=== PATIENT | female | born 1995 | race Caucasian/White ===

== ENCOUNTER → 2019-05-29 13:46 | Outpatient (BNVA) | payer SELFPAY | PROVIDERS: Family Provider Family Medicine; PCP Family Medicine; Visit Provider Registered Nurse | DX: N92.6 Irregular menstruation, unspecified (principal); N76.0 Acute vaginitis; B96.89 Other specified bacterial agents as the cause of diseases classified elsewhere; Z97.5 Presence of (intrauterine) contraceptive device | CPT/HCPCS: 81000; 87491; 87591; 87661 ==

== ENCOUNTER → 2021-03-17 15:09 | Outpatient (BNVA) | payer MEDICAID, SELFPAY | PROVIDERS: Family Provider Family Medicine; PCP Family Medicine; Visit Provider Registered Nurse | DX: N92.6 Irregular menstruation, unspecified (principal); Z32.01 Encounter for pregnancy test, result positive; H92.03 Otalgia, bilateral | CPT/HCPCS: 81025 ==

== ENCOUNTER 2021-10-30 17:35 | Inpatient (IN) | payer MEDICAID, SELFPAY ==
[2021-10-30] VITALS (106 sets, daily range): BP systolic 105–184; BP diastolic 55–115; PULSE 93–150; RESP 18; TEMP 36.1–37.2; O2SAT 93–99; BMI 29.0
[2021-10-30 08:55] LABS: Nitrazine Paper, PH Negative
[2021-10-30 09:01] LABS: Actim Prom Negative
[2021-10-30 11:12] LABS: Bilirubin Urine Neg (Negative); Blood Urine 3+ (Negative); Glucose Urine UA Norm (Normal); Ketones Urine 1+ (Negative); Nitrate Urine Negative (Negative); Protein Urine 3+ (Negative); Specific Gravity, Urine 1.005 (1.005-1.030); Urine Appearance Cloudy (CLEAR); Urine Color Red (Yellow); Urobilinogen Urine Norm (Negative); pH Urine 6.5 (5-7)
[2021-10-30 11:13] LABS: Add Urine Microscopic? YES; Leukocyte Esterase Urine 2+ (Negative); RBC Urine TOO NUMEROUS TO CNT /hpf (0-2)
[2021-10-30 11:16] LABS: Add Urine Culture? Yes; Squamous Epithelial Cell Urine 0-4 /hpf (0-5)
[2021-10-30] MEDS: ondansetron 2 mg/ML SDV 2 mL 4 MG IVP ×2 (11:24→18:50)
[2021-10-30 12:33] LABS: Charge for UA Resulting for Rev
[2021-10-30 12:37] LABS: Glucose Urine UA Norm (Normal); Ketones Urine 2+ (Negative); Protein Urine 1+ (Negative); Specific Gravity, Urine 1.005 (1.005-1.030); Urine Appearance Hazy (CLEAR); Urine Color Other (Yellow); pH Urine 7 (5-7)
[2021-10-30 12:38] LABS: Add Urine Microscopic? YES; Bilirubin Urine Neg (Negative); Blood Urine 3+ (Negative); Leukocyte Esterase Urine 1+ (Negative); Nitrate Urine Negative (Negative); Urobilinogen Urine Norm (Negative)
[2021-10-30 13:11] LABS: UPRO/UCREAT Ratio 0.34 mg/mg CR; Urine Creatinine 59 mg/dL (28-217); Urine Protein Random 20 mg/dL
[2021-10-30] MEDS: lactated ringers 1,000 ML 999 ML IV ×2 (14:21→15:22)
[2021-10-30 14:25] LABS: Basophils % 0.1 %; Eosinophils % 0.2 %; Hematocrit 41.4 % (37.0-47.0); Hemoglobin 13.4 g/dL (11.5-15.3); Lymphocytes # 2.9 10^3/uL (0.8-4.8); Lymphocytes % 17.6 %; Mean Corpuscular HGB Conc 32.4 g/dL (30.0-36.0); Mean Corpuscular Hemoglobin 30.3 pg (28.0-34.0); Mean Corpuscular Volume 93.7 fl (81-99); Mean Platelet Volume 10.2 fL (7.4-10.4); Monocytes # 0.8 10^3/uL (0.2-0.9); Monocytes % 4.6 %; Neutrophils # 12.58 10^3/uL (1.8-7.7); Nucleated Red Blood Cells % 0 %; Platelet Count 401 10^3/cmm (130-400); Red Blood Count 4.42 10^6/uL (4.1-5.3); Red Cell Distribution Width 14.3 % (12.1-15.1); White Blood Count 16.3 10^3/uL (4.0-10.0)
[2021-10-30] MEDS: oxytocin 30 UNIT/500 ML BAG IV (14:26)
--- NOTE | 2021-10-30 15:46 | P.ANESASSM_ITS ---
Pre-Anesthetic Assessment Height/Weight: Height 1.52 m Weight 67.585 kg Temp Pulse Resp BP Pulse Ox 97.0 F L 146 H 18 123/69 99 10/30/21 08:41 10/30/21 15:42 10/30/21 08:51 10/30/21 15:42 10/30/21 15:24 Familial anesthetic complications: none Was Beta Glenn taken within 24 hours: Yes Was Clonidine taken within 24 hours: N/A Social No alcohol and No tobacco Exam alert, oriented x 3, clear to auscultation bilaterally and regular rate & rhythm Airway Submandibular: within normal limits Cervical ROM: within normal limits Mallampati: Class II Dentition: chipped CV/HEM Hypertension GI Gastroesophageal Reflux Disease Anesthetic Plan ASA status: 2 Anesthesia: Regional (specify below) (Labor epidural) Medications/Allergies Home Medications Medication Instructions Recorded Confirmed Last Taken Type omeprazole 10 mg capsule,delayed 10 mg PO DAILY 10/31/20 03/17/21 Unknown History release propranolol 10 mg tablet 20 mg PO BID 01/26/21 03/17/21 Unknown History Allergies Allergy/AdvReac Type Severity Reaction Status Date / Time No Known Allergies Allergy Verified 03/17/21 15:03 Current Medications Generic Name Dose Route Start Last Admin Trade Name Freq PRN Reason Stop Dose Admin Oxytocin 30 unit in 500 mls @ 1 mls/hr 10/30/21 13:45 10/30/21 14:26 Pitocin IV 1 milliunit/min .Q24H DAV 1 mls/hr Administration Protocol 1 MILLIUNIT/MIN Ropivacaine 200 mg in 100 mls @ 13 mls/hr 10/30/21 14:15 10/30/21 15:34 Naropin Premix EPIDURAL 13 mls/hr .Q7H42M DAV Administration Lactated Ringer's 1,000 mls @ 999 mls/hr 10/30/21 14:08 10/30/21 15:22 Lactated Ringers IV 999 mls/hr .Q1H1M PRN Administration See label comments Ondansetron HCl 4 mg 10/30/21 09:55 10/30/21 11:24 Ondansetron 2 Mg/Ml Sdv 2 Ml IVP 4 mg Q4H PRN Administration NAUSEA AND VOMITING PFSH Anesthesia Social History Smoking and tobacco status: never smoked Alcohol intake: never Adopted: No Caregiver/support person: No Lives independently: No Household members: significant other Current occupational status: employed History of recent travel: No Sexually active: Yes Current gender identity: Female Female Reproductive History : 4 Data Anesthesia : 10/30/21 10:30 Short CBC 10/30/21 Range/Units 10:30 WBC 16.3 H (4.0-10.0) 10^3/uL Hgb 13.4 (11.5-15.3) g/dL Hct 41.4 (37.0-47.0) % MCV 93.7 (81-99) fl Plt Count 401 H (130-400) 10^3/cmm Neut % (Auto) 77.0 % Neut # (Auto) 12.58 H (1.8-7.7) 10^3/uL Urine 10/30/21 10/30/21 Range/Units 11:00 12:25 Urine Color Red Other (Yellow) Urine Appearance Cloudy Hazy A (CLEAR) Urine pH 6.5 7 (5-7) Ur Specific [place] 1.005 1.005 (1.005-1.030) Urine Protein 3+ H 1+ H (Negative) Urine Glucose (UA) Norm Norm (Normal) Urine Ketones 1+ H 2+ H (Negative) Urine Nitrate Negative Negative (Negative) Urine Bilirubin Neg Neg (Negative) Ur Leukocyte Esterase 2+ H 1+ H (Negative) Urine RBC Too numerous to cnt H (0-2) /hpf Urine WBC None (0-5) /hpf Cardiac Studies: No Data to Display Anesthesia Procedures Epidural Time Out Performed: Yes Consents Signed: Procedure Consent Consent: from patient, risks and benefits reviewed and patient agrees to proceed Lumbar Level: L3-L4 Epidural position: sitting Epidural procedure: sterile prep of area, 1% lidocaine to numb the area, 18 g needle, neg for paresthesia, test dose given, 1.5% xylocaine 1:200k epi, placed PCEA, no systemic response, sterile dressing applied and 0.2% Ropiavacaine @ mls/hr (13) Additional Comments: JUSTYNA at 5cm, cath at 10cm, bolused 5mls of 2% lido
[2021-10-30] MEDS: dextrose 5%-lactated ringers 1,000 ML 125 ML IV (23:00)
[2021-10-31] VITALS (37 sets, daily range): BP systolic 104–173; BP diastolic 56–87; PULSE 78–136; RESP 16–18; TEMP 36.6–36.9
[2021-10-31] MEDS: oxytocin 30 UNIT/500 ML BAG 600 UNIT IV (03:53)
[2021-10-31] MEDS: miSOPROStol 200 mcg Tablet 800 MCG PR (04:02)
[2021-10-31] MEDS: carboprost tromethamine 250 mcg/mL Amp IM (04:14)
--- NOTE | 2021-10-31 04:27 | PM.OPHPUD ---
Labor & Delivery H&P Update Date of Procedure: October 31, 2021 Date H&P Performed: 10/27/21 Admission Diagnosis: 26-year-old 4 para 2-0-1-2 at 39 weeks and 4 days presenting with contractions and found to have preeclampsia Planned procedure: Spontaneous vaginal delivery Other information: The patient presented to the hospital complaining of contractions and possible rupture membranes. Her membranes were found to be intact. But as a part of her evaluation she was noted to have 2 elevated systolic blood pressures greater than 140 and 3+ protein in her urine. The protein creatinine ratio was 0.3. She had no other symptoms of preeclampsia. She is she did have some mild swelling. She did not have a headache. She denied visual changes. Because she met criteria for preeclampsia, she was admitted and induced. Her labs are notable for blood type of A+ with antibody being negative she failed her 1 hour glucose screen, then later passed her 3-hour glucose screen. Her GBS status is negative. She is rubella immune. Her infectious disease profile was within normal limits. Related Problem List Diagnoses (1) 39 weeks gestation of : (2) Preeclampsia: A&P Assessment and plan (1) 39 weeks gestation of : We are inducing the patient with Pitocin. The patient desires an epidural. Status: Acute (2) Preeclampsia: AlsoBecause there are no severe features, we are now going to initiate magnesium at this time. She has not had any further elevated blood pressures. Status: Acute
--- NOTE | 2021-10-31 04:35 | P.PCNOB_ITS ---
Delivery Note: Date of delivery: October 31, 2021 Pre-delivery diagnoses: 1. 26-year-old 4 para 2-0-1-2 at 39 weeks estimated gestational age 2. Induction with Pitocin due to meeting criteria for preeclampsia Post- delivery diagnoses: Status post spontaneous vaginal delivery Procedure: Spontaneous vaginal delivery Delivering Physician: Wes Lamb Estimated blood loss (mL): 385 Pre-Delivery Course: The patient presented to the hospital where she was noted to have elevated blood pressures and to have a protein creatinine ratio 0.3. Pitocin was initiated. An epidural was placed. She progressed to an anterior lip that appeared to be reducible. We attempted to push with the patient, but the anterior lip did not resolve. As result she was allowed to labor and we once again had her push for over an hour and a half prior to delivery. Delivery: DELIVERY: The patient progressed to complete without difficulty. She delivered a male with a weight of 7 pounds 0 ounces with Apgars of 9, 9. The baby was delivered from the ROP position and placed on the mother's abdomen where the baby immediately began crying. The cord was then clamped and cut. There was no nuchal cord. Thick meconium was noted. The placenta and 3 vessel cord were delivered intact shortly thereafter. The perineum and vaginal vault were carefully examined. No lacerations were noted. For the first couple of minutes, there was no bleeding. She then began hemorrhaging. Her uterus was noted to be boggy. I manually removed clots from her uterus. She once again began to be boggy. We started tranexamic acid. And she received 800 of Cytotec. Despite that, she continued to bleed and her uterus continued to be boggy. She was then given Hemabate IM. Her uterus became more firm, and her bleeding stopped. Both the mother and the baby were in stable condition. Post-Delivery Status: Good A&P Assessment and plan (1) Spontaneous vaginal delivery: Other than monitoring the patient for bleeding, I anticipate routine care. Status: Acute (2) hemorrhage: The bleeding appears to be dramatically improved. The checks were weighed with her blood to obtain a blood loss amount. We will keep a close eye on her. Thankfully her blood counts and admission demonstrated a hemoglobin of greater than 13. She also has an 18-gauge IV. Status: Acute Coding Level of Care Code Acute Sand Mixer Machine for Chg Fwd Diagnoses Spontaneous vaginal delivery O80 hemorrhage O72.1
[2021-10-31] MEDS: diphenoxylate/atropine Tablet 1 TAB PO (05:03)
[2021-10-31] MEDS: benzocaine-menthol 78 gm Canister 1 SPRAY TOPICAL (05:04)
[2021-10-31] MEDS: lanolin oint 7 gm 1 APPLIC TOPICAL (05:04)
[2021-10-31] MEDS: acetaminophen 325 mg Tablet 650 MG PO (05:22)
[2021-10-31] MEDS: labetalol 5 mg/mL SDV 20mL 20 MG IVP (05:56)
[2021-10-31] MEDS: ibuprofen 800 mg tablet PO ×3 (09:53→21:27)
[2021-10-31] MEDS: prenatal vitamin Capsule 1 CAP PO (09:53)
--- NOTE | 2021-10-31 10:41 | ANE.PACU2 ---
Inpatient post-anesthesia follow up: Airway intact: Yes Vital signs: Temperature 98.4 F Pulse Rate 112 Respiratory Rate 16 Blood Pressure 104/58 Pulse Oximetry 99 Oxygen Delivery Me thod Room Air Oxygen Flow Rate Fraction of Inspir ed Oxygen Hydration adequate: Yes Nausea and vomiting: No Pain level: 2 Mental status: Baseline
[2021-10-31] MEDS: HYDROcodone-acetaminophen 5-325 mg Tablet PO (11:10)
[2021-10-31] MEDS: alum-mag-hydroxide-sime 30 mL UDC PO (15:45)
[2021-10-31 17:53] LABS: Hematocrit 31.8 % (37.0-47.0); Hemoglobin 9.5 g/dL (11.5-15.3); Mean Corpuscular HGB Conc 29.9 g/dL (30.0-36.0); Mean Corpuscular Hemoglobin 30.2 pg (28.0-34.0); Mean Platelet Volume 9.3 fL (7.4-10.4); Platelet Count 265 10^3/cmm (130-400); Red Blood Count 3.15 10^6/uL (4.1-5.3); Red Cell Distribution Width 14.1 % (12.1-15.1); White Blood Count 22.6 10^3/uL (4.0-10.0)
[2021-11-01 04:00] VITALS: BP 115/72; PULSE 93; RESP 18; TEMP 36.5
[2021-11-01] MEDS: prenatal vitamin Capsule 1 CAP PO (09:15)
[2021-11-01] MEDS: ibuprofen 800 mg tablet PO ×2 (09:15→14:27)
[2021-11-01] MEDS: docusate sodium 100 mg Capsule PO (09:15)
[2021-11-01 11:40] VITALS: BP 128/84; PULSE 93; RESP 16; TEMP 36.9; O2SAT 97
[2021-11-01] MEDS: medroxyprogesterone 150 mg/ml SDV 1 mL IM (14:11)
[2021-11-01 14:30] VITALS: BP 130/85; PULSE 84; RESP 16; TEMP 36.7; O2SAT 99
--- NOTE | 2021-11-14 12:49 | PM.OBGYDC ---
Discharge Providers HAND DRAWER IN HELPER Date of Admission: 10/30/21 17:40 Date of Discharge: 11/01/21 Attending Provider at Admission: Wes Lamb MD Attending Provider at Discharge: Wes Lamb MD Primary Care Provider: Wes Lamb MD Diagnoses at Discharge Discharge Diagnosis (1) Spontaneous vaginal delivery: Status: Resolved (2) hemorrhage: Status: Resolved Reason for Visit Reason for Visit: Leaking of fluid, contractions Hospital Course Hospital Course The patient presented to the hospital concerned that she had rupture membranes. After presenting to the hospital being evaluated, her membranes were found to be intact. But she was found to have systolic blood pressures greater than 140s with 3+ protein in her urine. Her protein creatinine ratio was 0.3. Due to her gestational age of 39 weeks, she was induced. She did not have any severe features. As result she was induced without any magnesium. Pitocin was initiated. She progressed to complete and had an unremarkable vaginal delivery. Her course was also relatively unremarkable. Her blood pressures improved. She is to continue not to have any symptoms associated with preeclampsia. Her bleeding was within normal limits. Her pain was well controlled. Information Peripartum Data: Delivery Method: Vaginal Physical Exam Narrative: The patient is alert. She appears comfortable. Her heart has a regular rate and rhythm with no murmurs appreciated. Lungs are clear to auscultation bilaterally. Her fundus is firm and below the umbilicus. Her lower extremities had trace to 1+ edema bilaterally Urinary Catheter Management: Alexander: Cath Placed During This Visit: yes, but has since been removed by the nurse Reason for Continuing Indwelling Catheter: Decision to DC Catheter Urinary Catheter Date of Insertion: 10/30/21 Urinary Catheter Time of Insertion: 16:20 Date Urinary Catheter Removed: 10/30/21 Time Urinary Catheter Discontinued: 21:27 Discharge Data Studies Completed and Pending Laboratory Results WBC 22.6 10^3/uL (4.0-10.0) H 10/31/21 17:45 RBC 3.15 10^6/uL (4.1-5.3) L 10/31/21 17:45 Hgb 9.5 g/dL (11.5-15.3) L 10/31/21 17:45 Hct 31.8 % (37.0-47.0) L 10/31/21 17:45 MCV 101.0 fl (81-99) H 10/31/21 17:45 MCH 30.2 pg (28.0-34.0) 10/31/21 17:45 MCHC 29.9 g/dL (30.0-36.0) L 10/31/21 17:45 RDW 14.1 % (12.1-15.1) 10/31/21 17:45 Plt Count 265 10^3/cmm (130-400) 10/31/21 17:45 MPV 9.3 fL (7.4-10.4) 10/31/21 17:45 Neut % (Auto) 77.0 % 10/30/21 10:30 Lymph % (Auto) 17.6 % 10/30/21 10:30 [place] % (Auto) 4.6 % 10/30/21 10:30 Eos % (Auto) 0.2 % 10/30/21 10:30 Baso % (Auto) 0.1 % 10/30/21 10:30 Neut # (Auto) 12.58 10^3/uL (1.8-7.7) H 10/30/21 10:30 Lymph # (Auto) 2.9 10^3/uL (0.8-4.8) 10/30/21 10:30 [place] # (Auto) 0.8 10^3/uL (0.2-0.9) 10/30/21 10:30 Eos # (Auto) 0.0 10^3/uL (0.0-0.8) 10/30/21 10:30 Baso # (Auto) 0.0 10^3/uL (0.0-0.1) 10/30/21 10:30 Nucleated RBC % (auto) 0 % 10/30/21 10:30 Nucleated RBCs # 0.0 /100WBC 10/30/21 10:30 Insulin-like GF I Negative 10/30/21 08:45 Urine Color Other (Yellow) 10/30/21 12:25 Urine Appearance Hazy (CLEAR) A 10/30/21 12:25 Urine pH 7 (5-7) 10/30/21 12:25 Ur Specific [place] 1.005 (1.005-1.030) 10/30/21 12:25 Urine Protein 1+ (Negative) H 10/30/21 12:25 Urine Glucose (UA) Norm (Normal) 10/30/21 12:25 Urine Ketones 2+ (Negative) H 10/30/21 12:25 Urine Blood 3+ (Negative) H 10/30/21 12:25 Urine Nitrate Negative (Negative) 10/30/21 12:25 Urine Bilirubin Neg (Negative) 10/30/21 12:25 Urine Urobilinogen Norm mg/dL (Negative) 10/30/21 12:25 Ur Leukocyte Esterase 1+ (Negative) H 10/30/21 12:25 Urine RBC Too numerous to cnt /hpf (0-2) H 10/30/21 11:00 Urine WBC None /hpf (0-5) 10/30/21 11:00 Ur Squamous Epith Cells 0-4 /hpf (0-5) H 10/30/21 11:00 Amorphous Sediment Not Reportable 10/30/21 11:00 Urine Bacteria None /hpf (NONE) 10/30/21 11:00 U Random Total Protein 20 mg/dL 10/30/21 12:25 Urine Creatinine 59 mg/dL (28-217) 10/30/21 12:25 Protein/Creatinin Ratio 0.34 mg/mg CR 10/30/21 12:25 Vitals Last Vital Signs Temp 98.1 F 11/01/21 14:30 Pulse 84 11/01/21 14:30 Resp 16 11/01/21 14:30 BP 130/85 11/01/21 14:30 Pulse Ox 99 11/01/21 14:30 O2 Del Method 11/01/21 11:40 Discharge Plan Discharge Patient Disposition: Home Condition: Stable Prescriptions: New ibuprofen 800 mg Tablet 800 mg PO TID Qty: 45 0RF Continued omeprazole 10 mg capsule,delayed release(DR/EC) 10 mg PO DAILY propranolol 10 mg tablet 20 mg PO BID Discharge Orders: Discharge Order (Routine); Ordered 11/01/21 Ordered By: Wes Lamb Referrals: Irwin Johnson MD [Physician] - (For tubal ligation) Wes Lamb MD [Primary Care Provider] - 12/14/21 12:00 pm Discharge Diet: Usual diet Discharge Activity: Limit activity as instructed Patient Instructions: Depression (DC), Bleeding (DC), Preeclampsia and Eclampsia After Delivery (GEN), OB Discharge Report, OB Food/Drug Interaction Guide, OB Care at Home, Opioid Safety, OB Vaginal Deliveries Discharge Attestations HAND DRAWER IN HELPER Time Spent in Discharge Care*: less than 30 min Coding Level of Care Code Acute Aviation Safety Equipment Technician for Chg Fwd Diagnoses Spontaneous vaginal delivery O80 hemorrhage O72.1
== END 2021-11-01 14:30 | disposition home or self-care (01) | DRG 807 ==
LOC: OPOB 17:36 → OBGYN 17:36
PROVIDERS: Admitting Provider Family Medicine; PCP Family Medicine; Visit Provider Family Medicine
DX: O14.94 Unspecified pre-eclampsia, complicating childbirth (principal); Z37.0 Single live birth; Z3A.39 39 weeks gestation of pregnancy
CPT/HCPCS: 12345; 36415; 51702; 59025; 59409; 81001; 81003; 82570; 83986; 84112; 84156; 85025; 85027; 87086; 96372; 99211; G0378; J1050; J2405; J2795; J3490

== ENCOUNTER 2022-04-28 08:09 | Day surgery (SDC) | payer OTHER, MEDICAID, SELFPAY ==
[2022-04-26 13:43] VITALS: BMI 29.7
--- NOTE | 2022-04-26 13:55 | ANES.PREANE2 ---
Pre-Anesthetic Assessment Height/Weight: Height 1.52 m Weight 68.946 kg Operation Date: 04/28/22 08:40 Proposed Procedures p Laparoscopic bilateral salpingectomy 97573,Z30.2(Bilateral) - Irwin Johnson MD Familial anesthetic complications: None Social Tobacco and No alcohol Exam alert, oriented x 3, clear to auscultation bilaterally and regular rate & rhythm Airway Mallampati: Class II Dentition: other (missing teeth) Pulmonary None reported CV/HEM None reported None reported Hepatic None reported GI Gastroesophageal Reflux Disease Metabolic None reported Musc/skel None reported Neuropsych None reported Anesthetic Plan ASA status: 2 Anesthesia: General Risk of > 500 ml blood loss (7ml/kg in children): No Medications/Allergies Home Medications Medication Instructions Recorded Confirmed Last Taken Type omeprazole 10 mg capsule,delayed 10 mg PO DAILY 10/31/20 04/26/22 04/25/22 History release propranolol 10 mg tablet 20 mg PO BID 01/26/21 04/26/22 04/26/22 History ibuprofen 800 mg tablet 800 mg PO TID #45 tabs 11/01/21 04/26/22 04/24/22 Rx medroxyprogesterone 150 mg/mL 150 mg IM ONCE #1 mL 03/30/22 04/26/22 01/27/22 Rx intramuscular suspension (Depo-Provera) Allergies Allergy/AdvReac Type Severity Reaction Status Date / Time No Known Allergies Allergy Verified 04/26/22 13:41 [facility] Anesthesia Family History (Updated 03/30/22 @ 13:56 by Genevieve Dwyer LPN) Grandfather CAD (coronary artery disease) Grandmother Dementia Mother Hypertension Other Diabetes Denies family history of Cancer Stroke Data Anesthesia Cardiac Studies: No Data to Display
[2022-04-26 14:21] LABS: Basophils % 0.5 %; Eosinophils # 0.1 10^3/uL (0.0-0.8); Eosinophils % 1.2 %; Hematocrit 42.6 % (37.0-47.0); Hemoglobin 13.9 g/dL (11.5-15.3); Lymphocytes # 3.5 10^3/uL (0.8-4.8); Lymphocytes % 43.4 %; Mean Corpuscular HGB Conc 32.6 g/dL (30.0-36.0); Mean Corpuscular Hemoglobin 28.5 pg (28.0-34.0); Mean Corpuscular Volume 87.5 fl (81-99); Mean Platelet Volume 8.7 fL (7.4-10.4); Monocytes # 0.6 10^3/uL (0.2-0.9); Monocytes % 7.6 %; Neutrophils # 3.78 10^3/uL (1.8-7.7); Neutrophils % 46.9 %; Nucleated Red Blood Cells % 0 %; Platelet Count 417 10^3/cmm (130-400); Red Blood Count 4.87 10^6/uL (4.1-5.3); Red Cell Distribution Width 13.9 % (12.1-15.1); White Blood Count 8.1 10^3/uL (4.0-10.0)
[2022-04-26 14:22] LABS: Add Urine Microscopic? NO; Charge for UA Resulting for Rev
[2022-04-26 14:42] LABS: Bilirubin Urine Neg (Negative); Blood Urine Neg (Negative); Glucose Urine UA Norm (Normal); Ketones Urine Negative (Negative); Leukocyte Esterase Urine Negative (Negative); Nitrate Urine Negative (Negative); Protein Urine Neg (Negative); Specific Gravity, Urine 1.015 (1.005-1.030); Urine Appearance Clear (CLEAR); Urine Color Yellow (Yellow); Urobilinogen Urine Neg (Negative); pH Urine 6.5 (5-7)
[2022-04-26 14:45] LABS: OR HCG Qualitative Urine Negative (Negative)
[2022-04-26 14:47] LABS: Alanine Aminotransferase 51 U/L (0-33); Albumin Level 4.3 g/dL (3.5-5.2); Alkaline Phosphatase 74 U/L (35-105); Aspartate Amino Transferase 20 U/L (0-32); Blood Urea Nitrogen 10 mg/dL (6-20); Calcium 9.1 mg/dL (8.5-10.5); Carbon Dioxide 25 mmol/L (22-29); Chloride 106 mmol/L (98-107); Globulin 2.9 g/dL (1.3-4.6); Glomerular Filtration Rate 121.8 mL/min (90-130); Glucose 101 mg/dL (65-115); Osmolality Calculated 293 mOsm/kg (285-295); Sodium 142 mmol/L (136-145); Total Bilirubin 0.5 mg/dL (0.15-1.2); Total Protein 7.2 g/dL (6.6-8.7)
[2022-04-28] VITALS (10 sets, daily range): BP systolic 92–144; BP diastolic 56–88; PULSE 57–84; RESP 12–23; TEMP 36.2–36.8; O2SAT 98–100
[2022-04-28 08:45] LABS: OR HCG Qualitative Urine Negative (Negative)
[2022-04-28] MEDS: sodium chloride 0.9% 500 ML IV (08:57)
[2022-04-28] MEDS: sodium chloride 0.9% 1,000 ML 30 ML IV (08:57)
--- NOTE | 2022-04-28 08:57 | P.ANESUD_ITS ---
Pre-Anesthetic Update Pre-Anesthetic Assessment: Date of Surgery/Procedure: 04/28/22 Preop Beth gnosis: Desire permanent sterilization Proposed Procedure: Operation Date: 04/28/22 09:45 Proposed Procedures p Laparoscopic bilateral salpingectomy 43394,Z30.2(Bilateral) - Irwin Johnson MD Any changes to Pre-Anesthetic Assessment?: No Last Intake: Intake Last Liquid Date 04/27/22 Last Liquid Time 21:30 Last Solid Date 04/27/22 Last Solid Time 18:00 Labs Last 48hrs: Short CBC 04/26/22 Range/Units 13:42 WBC 8.1 (4.0-10.0) 10^3/ uL Hgb 13.9 (11.5-15.3) g/dL Hct 42.6 (37.0-47.0) % MCV 87.5 (81-99) fl Plt Count 417 H (130-400) 10^3/c mm Neut % (Auto) 46.9 % Neut # (Auto) 3.78 (1.8-7.7) 10^3/u L BMP 04/26/22 13:42 Sodium 142 Potassium 4.0 Chloride 106 Carbon Dioxide 25 BUN 10 Creatinine 0.6 Glucose 101 Calcium 9.1 Liver Function 04/26/22 Range/Units 13:42 Total Bilirubin 0.5 (0.15-1.2) mg/dL AST 20 (0-32) U/L ALT 51 H (0-33) U/L Alkaline Phosphata se 74 (35-105) U/L Albumin 4.3 (3.5-5.2) g/dL Urine 04/26/22 Range/Units 13:55 Urine Color Yellow (Yellow) Urine Appearance Clear (CLEAR) Urine pH 6.5 (5-7) Ur Specific [place] 1.015 (1.005-1.030) Urine Protein Neg (Negative) Urine Glucose (UA) Norm (Normal) Urine Ketones Negative (Negative) Urine Nitrate Negative (Negative) Urine Bilirubin Neg (Negative) Ur Leukocyte [place] ase Negative (Negative) Blood Bank 04/26/22 13:42 Blood Type A Positive Rho(D) Type Positive Antibody Screen Negative Vitals: Temperature 98.2 F 04/28/22 08:26 Temperature Source Temporal Artery S can 04/28/22 08:26 Pulse Rate 82 03/08/23 08:26 Respiratory Rate 16 04/28/22 08:26 Blood Pressure 144/88 04/28/22 08:26 Blood Pressure Mari n 106 04/28/22 08:26 Pulse Oximetry 99 04/28/22 08:26 Oxygen Delivery Me thod 04/28/22 08:27 Exam: Pre-Anes Outpt Exam: alert, oriented x 3, clear to auscultation bilaterally and regular rate & rhythm Cardiac Studies: No Data to Display
--- NOTE | 2022-04-28 09:29 | W.PM.OPSUD ---
Surgery/Procedure H&P Update DATE OF PROCEDURE: April 28, 2022 DATE H&P PERFORMED: 04/26/22 H&P UPDATE INFORMATION: I have reviewed H&P completed within last 30 days, I have examined patient prior to procedure and No changes to prior documentation PREOP DIAGNOSIS: Desire permanent sterilization PLANNED PROCEDURE: Operation Date: 04/28/22 09:45 Proposed Procedures p Laparoscopic bilateral salpingectomy 04571,Z30.2(Bilateral) - Irwin Johnson MD
[2022-04-28] MEDS: ceFAZolin 2,000 MG in sodium chloride 0.9% (plus) 50 ML 100 MG IV (09:45)
--- NOTE | 2022-04-28 10:37 | PM.OP ---
Operative Report Date of procedure: April 28, 2022 Pre-op diagnosis: Preop Diagnosis Desire permanent sterilization Post-op diagnosis: Same as above Procedure done: Laparoscopic bilateral salpingectomy Specimens removed/disposition: Left and right fallopian tube Surgeon: Irwin Johnson MD Estimated blood loss (mL): 1 IV fluids (mL): 700 Urine output (mL): 900 Complications: None Procedure: After informed consent, the patient was taken to the operating room where general anesthesia was administered. She was placed in the dorsal lithotomy position and prepped and draped in sterile fashion. Pre-Procedure Time-Out verifying the correct patient identity, correct procedure verified with consent, correct site and side, correct patient position, availability of correct implants and any special equipment or requirements was performed and acknowledge by the OR team. The patient was examined under anesthesia and found to have a normal uterus with normal adnexa. A weighted speculum was placed in the vagina, and the anterior lip of cervix was grasped with the single toothed tenaculum. A uterine manipulator was advanced into the endocervical canal and uterus. The tenaculum was removed after uterine manipulator was secured. The speculum was removed from the vagina. An intraumbilical incision was made with a scalpel. While tenting up on the abdomen, a Verres needle was admitted into the intra-abdominal cavity. A saline drop test was performed and noted to be within normal limits. Pneumoperitoneum was attained with 4 liters of carbon dioxide. The Verres needle was removed. A 5 mm Opitc view trocar and sleeve were admitted into the abdomen and laparoscopic confirmation of location was achieved. A second incision was made 3 cm above the symphysis pubis, and a 5 mm trocar sleeves were admitted into the abdomen under direct laparoscopic visualization without complication. A survey revealed normal abdominal anatomy. A 5 mm blunt probe was advanced through the second trocar sleeve, and light manipulation of ovaries and uterus to assess the posterior aspects was performed. The pelvic survey shows normal uterus, left and right adnexa. The left ovary was noted with a follicular cyst. The patient was placed into Trendelenburg position. The fallopian tubes were inspected bilaterally and the fimbriated ends of the fallopian tubes were visualized bilaterally. Attention was then directed to the right side. The fallopian tube and mesosalpinx were grasped and the underlying mesosalpinx was cauterized and cut using the Enseal device. Serial cauterization and cutting was used to separate the fallopian tube from the underlying mesosalpinx until it could be amputated cutting it approximated 2 cm from the cornua. Attention was then turned to the contralateral fallopian tube, which was removed in similar fashion. Both specimens were removed through the trocar and sent to pathology. The instruments were removed. The suprapubic trocar port was removed under direct visualization insuring good hemostasis. The carbon dioxide was allowed to escape from the abdomen. The intraumbilical trocar sleeve was withdrawn under visualization with laparoscope in the sleeve to insure hemostasis. The skin incisions were closed with 3-O Monocryl subcuticular stich and Dermabond. The instruments were removed from the vagina, and excellent hemostasis was noted. The patient tolerated the procedure well, and sponge, lap and needle count were correct times two. The patient was taken to the recovery room in good condition.
--- NOTE | 2022-04-28 11:30 | SUR.PHASEII ---
1130-woods catheter was removed in Phase II
[2022-04-28] MEDS: HYDROcodone-acetaminophen 5-325 mg Tablet 1 TAB PO (12:00)
--- NOTE | 2022-04-28 14:43 | ANE.PACU2 ---
Inpatient post-anesthesia follow up: Airway intact: Yes Vital signs: Temperature 97.6 F Pulse Rate 84 Respiratory Rate 16 Blood Pressure 120/73 Pulse Oximetry 98 Oxygen Delivery Me thod Room Air Oxygen Flow Rate 8 Fraction of Inspir ed Oxygen Hydration adequate: Yes Nausea and vomiting: No Pain level: 1 Mental status: Baseline
== END 2022-04-28 12:10 | disposition home or self-care (01) ==
PROVIDERS: Anesthesiology; PCP Family Medicine; Visit Provider Obstetrics & Gynecology
PROC: (CPT 58661; principal; 2022-04-28 09:35)
DX: Z30.2 Encounter for sterilization (principal); K21.9 Gastro-esophageal reflux disease without esophagitis
CPT/HCPCS: 58661; 36415; 80053; 81003; 81025; 84703; 85025; 86850; 86900; 88302; J0690; J1100; J2405; J2704; J2710; J3010; J3490; J7030; J7040

== ENCOUNTER → 2022-07-29 14:25 | Outpatient (BNVA) | payer MEDICAID, SELFPAY | PROVIDERS: PCP Family Medicine; Visit Provider Obstetrics & Gynecology | DX: R10.2 Pelvic and perineal pain (principal) | CPT/HCPCS: 76830 ==

== ENCOUNTER → 2022-09-29 11:21 | Outpatient (BNVA) | payer MEDICAID, SELFPAY | PROVIDERS: PCP Family Medicine; Visit Provider Obstetrics & Gynecology | DX: R10.2 Pelvic and perineal pain (principal) | CPT/HCPCS: 76830 ==

== ENCOUNTER 2022-12-21 06:55 | Day surgery (SDC) | payer MEDICAID, SELFPAY ==
--- NOTE | 2022-12-16 12:06 | ANES.PREANE2 ---
Pre-Anesthetic Assessment Height/Weight: Height 1.52 m Operation Date: 12/21/22 08:50 Proposed Procedures p Hysteroscopy, dilation and curettage with Myosure [id number],.N82.0(Not Applicable) - Irwin Johnson MD s Dilation And Curettage (D&C)(Not Applicable) - Irwin Johnson MD Familial anesthetic complications: none Was Beta Glenn taken within 24 hours: Yes Was Clonidine taken within 24 hours: N/A Social No alcohol and No tobacco Exam alert, oriented x 3, clear to auscultation bilaterally and regular rate & rhythm Airway Submandibular: within normal limits Cervical ROM: within normal limits Mallampati: Class II GI Gastroesophageal Reflux Disease Neuropsych Headache Anesthetic Plan ASA status: 2 Anesthesia: General Medications/Allergies Home Medications Medication Instructions Recorded Confirmed Last Taken Type omeprazole 10 mg capsule,delayed 20 mg PO BID 10/31/20 12/15/22 12/15/22 History release propranolol 10 mg tablet 40 mg PO BID 01/26/21 12/15/22 12/15/22 History acetaminophen 325 mg capsule 325 mg PO Q4H PRN fever or pain 04/28/22 12/15/22 Unknown Rx #60 caps ibuprofen 800 mg tablet 800 mg PO TID PRN pelvic pain #60 08/03/22 12/15/22 Unknown Rx tabs escitalopram oxalate 10 mg tablet 10 mg PO BEDTIME 12/15/22 12/15/22 12/14/22 History (Lexapro) Allergies Allergy/AdvReac Type Severity Reaction Status Date / Time No Known Allergies Allergy Verified 12/15/22 09:49 [facility] Anesthesia Medical History Chronic GERD History of gestational hypertension Migraine with aura gets a light in her left eye- the headache starts 30min-1 hour after No pertinent past medical history neghx: htn,dm,thyroid,dvt/pe PCP: Dr. Lamb Surgical History History of cholecystectomy History of laparoscopy (~04/28/22) Laparoscopic bilateral salpingectomy performed by Dr. Johnson for desired sterilization. Family History Grandfather CAD (coronary artery disease) Grandmother Dementia Mother Hypertension Other Diabetes Denies family history of Cancer Stroke Female Reproductive History Date of last menstrual period: 12/08/22 Data Anesthesia Cardiac Studies: No Data to Display
[2022-12-21] VITALS (10 sets, daily range): BP systolic 130–173; BP diastolic 86–108; PULSE 89–120; RESP 12–22; TEMP 36.1–36.6; O2SAT 92–99
[2022-12-21] MEDS: sodium chloride 0.9% 1,000 ML 30 ML IV (07:20)
[2022-12-21] MEDS: scopolamine 1.5 Patch 1 PATCH TRANSDERMA (07:20)
[2022-12-21] MEDS: sodium chloride 0.9% 500 ML IV (07:21)
--- NOTE | 2022-12-21 07:30 | P.ANESUD_ITS ---
Pre-Anesthetic Update Pre-Anesthetic Assessment: Date of Surgery/Procedure: 12/21/22 Preop Beth gnosis: Abnormal uterine bleeding Proposed Procedure: Operation Date: 12/21/22 08:25 Proposed Procedures p Hysteroscopy, dilation and curettage with Myosure [id number],.N82.0(Not Applicable) - Irwin Johnson MD s Dilation And Curettage (D&C)(Not Applicable) - Irwin Johnson MD Any changes to Pre-Anesthetic Assessment?: No Last Intake: Intake Last Liquid Date 12/20/22 Last Liquid Time 23:30 Last Solid Date 12/20/22 Last Solid Time 20:00 Vitals: Temperature 97.2 F L 12/21/22 06:59 Temperature Source Temporal Artery S can 12/21/22 06:59 Pulse Rate 105 H 12/21/22 06:59 Pulse Rhythm Regular 12/21/22 07:21 Pulse Strength 3+ Normal 12/21/22 07:21 Respiratory Rate 16 12/21/22 06:59 Blood Pressure 143/105 12/21/22 06:59 Blood Pressure Mari n 117 12/21/22 06:59 Pulse Oximetry 98 12/21/22 06:59 Oxygen Delivery Me thod Room Air 12/21/22 07:21 Exam: Pre-Anes Outpt Exam: alert, oriented x 3, clear to auscultation bilat erally and regular rate & rhythm Cardiac Studies: No Data to Display
--- NOTE | 2022-12-21 08:02 | W.PM.OPSUD ---
Surgery/Procedure H&P Update DATE OF PROCEDURE: December 21, 2022 DATE H&P PERFORMED: 12/13/22 H&P UPDATE INFORMATION: I have reviewed H&P completed within last 30 days, I have examined patient prior to procedure and No changes to prior documentation PREOP DIAGNOSIS: Abnormal uterine bleeding PLANNED PROCEDURE: Operation Date: 12/21/22 08:25 Proposed Procedures p Hysteroscopy, dilation and curettage with Myosure [id number],.N82.0(Not Applicable) - Irwin Johnson MD s Dilation And Curettage (D&C)(Not Applicable) - Irwin Johnson MD
[2022-12-21] MEDS: ceFAZolin 2,000 MG in sodium chloride 0.9% (plus) 50 ML 100 MG IV (08:10)
[2022-12-21 08:13] LABS: OR HCG Qualitative Urine Negative (Negative)
[2022-12-21] MEDS: lidocaine-epi 2% 20 mL INJ INJECTION (08:36)
--- NOTE | 2022-12-21 08:47 | PM.OP ---
Operative Report Date of procedure: December 21, 2022 Pre-op diagnosis: Abnormal uterine bleeding Post-op diagnosis: Abnormal uterine bleeding Procedure done: Hysteroscopy and D&C via MyoSure Specimens removed/disposition: Endometrial curettings Surgeon: Irwin Johnson MD Estimated blood loss (mL): 10 IV fluids (mL): 300 Procedure: After informed consent, the risks included but were not limited to bleeding, infection, injury to internal organs. The patient was counseled on a possible laparotomy and on the potential need for hysterectomy. The patient expressed understanding of the risks involved, all questions were answered, and the patient consented to the procedure. The patient was taken to the operating room where general anesthesia was administered. She was placed in the dorsal lithotomy position and prepped and draped in sterile fashion. A time out procedure was performed. The patient was examined under anesthesia and found to have a normal uterus with normal adnexa. A sterile weight speculum was placed in the vagina. The uterus was then gently sounded to 7 cm, and the cervix was dilated. The 0 degrees MyoSure hysteroscope was advanced gently to the uterine fundus while visualizing the monitor. Survey of the uterine cavity showed: Proliferative endometrium, the fundus shows normal proliferative endometrium; left ostium was visualized, and lateral wall with proliferative endometrium; right ostium visualized, and lateral wall with proliferative endometrium; anterior and posterior gardiner are with proliferative endometrium; endocervical canal is normal. The MyoSure device was advanced and the direct visualization the endometrium was morcellated without complication. At the end of morcellation the fluid deficit was 370 mL and was estimated at approximately 200 mL were on the floor. There was minimal bleeding noted and the tenaculum removed with goad hemostasis noted. The patient tolerated the procedure well. The patient was taken to the recovery area in stable condition.
[2022-12-21] MEDS: labetalol 5 mg/mL SDV 20mL 100 MG (09:15)
[2022-12-21] MEDS: ondansetron 2 mg/ML SDV 2 mL 4 MG IVP ×2 (10:00→10:25)
--- NOTE | 2022-12-21 10:15 | ANE.PACU2 ---
Inpatient post-anesthesia follow up: Airway intact: Yes Vital signs: Temperature 97.8 F Pulse Rate 89 Respiratory Rate 18 Blood Pressure 144/86 Pulse Oximetry 95 Oxygen Delivery Me thod Room Air Oxygen Flow Rate 6 Fraction of Inspir ed Oxygen Hydration adequate: Yes Nausea and vomiting: No Pain level: 1 Mental status: Baseline
== END 2022-12-21 10:10 | disposition home or self-care (01) ==
PROVIDERS: PCP Family Medicine; Visit Provider Obstetrics & Gynecology
PROC: 0UDB8ZZ Extraction of Endometrium, Via Natural or Artificial Opening Endoscopic (ICD-10-PCS; CPT 58558; principal; 2022-12-21 08:15)
PROC: (CPT 58120; 2022-12-21 08:15)
DX: N93.9 Abnormal uterine and vaginal bleeding, unspecified (principal); K21.9 Gastro-esophageal reflux disease without esophagitis
CPT/HCPCS: 58558; 81025; 84703; 88305; J0690; J1170; J2405; J2704; J3010; J3490; J7030; J7040